=== PATIENT | male | born 1935 | race Caucasian/White ===

== ENCOUNTER 2017-04-12 15:29 | Emergency (ER) | payer OTHER, MEDICARE ==
[2017-04-12 15:41] VITALS: BMI 23.7
--- NOTE | 2017-04-12 15:49 | DR.AMS ---
HPI - Time Seen Time seen: 15:43 - PCP Primary Care Physician: RUSLAN DICKERSON - Complaint Cheif Complaint Doctors Comments: Patient droped spouse off the the [employer] [facility] , told her he would pick her up at 1pm. Spouse called patient and he did not know where she was, she told her he would pick her up at 1330 but at 1345 he had not arrived, she called and he did not know where she was. She eventually got someone to take her home. He was still unaware as to what was going on. Chief Complaint:: PTS C/O THAT AROUND 11 AM HER STARTED HAVING SOME CONFUSION. AND THAT HE DROPPED HER OFF AT [facility] AT 11 AND FORGOT TO PICK HER UP PT DENIES ANY PAIN OR TRAUMA AND HE ASKED HIS WHY SHE HAS A CANE". Self Treatment fo Chief Complaint: PT STATES " HE HAS NEVER BEEN DX WITH ALZHEIMERS OR DEMENTIA " - Source History Provided: Patient - Mode of Arrival Mode of Arrival: Ambulatory - Timing Onset of Chief Complaint: 04/12/17 PMH - PMH Past Medical History: No Past Medical History: Angina, GERD Past Medical History Comment: HX CANCER OF THE COLON, SACOMA Past Surgical History: No Surgical History: Ortho Surgery - Family History History of Family Medical Conditions: No Family Medical History: Hypertension - Social History Does patient currently use any type of tobacco product: No Have you used tobacco products in the last 12 months: No Type of Tobacco Use: None Does any household member use tobacco: No Alcohol Use: Rarely Do you use any recreational Drugs:: No Lives With: Family Lives Where: Home - infectious screening In the last 2 months have you had wt loss of >10#?: NO Have you had fever, night sweats or hemotysis?: No Have you traveled outside the country in the last 6 months?: No Isolation: Standard ROS - Review of Systems Eyes: No Symptoms Reported ENTM: No Symptoms Reported Respiratoy: No Symptoms Reported Cardiovascular: No Symptoms Reported Gastrointestinal/Abdominal: No Symptoms Reported Genitourinary: No Symptoms Reported Neurological: No Symptoms Reported Musculoskeletal: No Symptoms Reported Integumentary: No Symptoms Reported Hematologic/Lymphatic: No Symptoms Reported Endocrine: No Symptoms Reported Psychiatric: No Symptoms Reported All Other Systems: Reviewed and Negative PE - Vitals Vital Signs: Pulse Pulse Resp BP BP Pulse Ox 04/12/17 16:42 67 20 156/70 04/12/17 15:34 71 22 194/79 97 06/25/14 21:42 159/63 159/63 - General Limitations: No Limitations General Appearance: Alert, In No Apparent Distress - Head Head Exam: Normal Inspection, Atraumatic Head Exam Physical: negative: Laceration, Abrasion, Contusion, Hematoma, Raccoon Eyes, Bar's Sign, Tenderness of Temporal Artery, CSF Rhinorrhea, CSF Otorrhea, Other - Eyes Eye exam: Normal Appearance, PERRL, EOMI Pupils: Regular, Round: Bilateral - ENT ENT Exam: Normal Exam External Ear Exam: Normal External Inspection TM/Canal Exam: Bilateral Normal Nose Exam: Normal Nose Exam Mouth Exam: Normal Inspection Throat Exam: Normal Inspection - Neck Neck Exam: Normal Inspection, Full ROM - Chest Chest Inspection: Normal Inspection - Respiratory Respiratory Exam: Normal Lung Sounds Bilat Respiratory Exam: Bilateral Clear to Auscultation - Cardiovascular Cardiovascular Exam: Regular Rate, Normal Rhythm - Abdominal Exam Abdominal Exam: Normal Inspection, Normal Bowel Sounds Abdominal Tenderness: negative: RUQ, RLQ, LUQ, LLQ, Epigastrium, Suprapubic, Diffuse, Mild, Moderate, Severe, Other - Extremities Extremities Exam: Normal Inspection, Full ROM - Back Back Exam: Normal Inspection - Neurological Neurological Exam: Alert, Oriented X3, CN II-XII Intact, Normal Gait Cranial Nerve Exam: EOM Function (II, III, IV, ): Normal Cerebellar Function: Normal Gait Motor Strength - LUE: 3/5 Upper Motor Neuron Exam: Parrish Neglect: Normal Sensory Exam Upper Extremity: Light Touch: Normal DTR: achilles tendon (L): 2+ - Psychological Psychiatric Exam: Normal Affect, Normal Mood Expanded Psychiatric Exam: Poor Eye Contact - Skin Skin Exam: Warm, Dry, Intact ROR - Labs Reviewed Result Diagrams: 04/12/17 16:35 04/12/17 16:35 Laboratory: WBC 8.8 X10^3/uL (3.6-10.0) 04/12/17 16:35 RBC 4.74 X10^6/uL (4.7-6.0) 04/12/17 16:35 Hgb 14.3 g/dL (13.5-18.0) 04/12/17 16:35 Hct 42.4 % (42.0-54.0) 04/12/17 16:35 MCV 89.6 fL (80.0-100.0) 04/12/17 16:35 MCH 30.2 pg (27.0-34.0) 04/12/17 16:35 MCHC 33.7 g/dL (33.0-35.0) 04/12/17 16:35 RDW 13.5 % (11.6-16.5) 04/12/17 16:35 Plt Count 226 X10^3/uL (150.0-450.0) 04/12/17 16:35 MPV 8.1 fL (7.4-11.0) 04/12/17 16:35 Neut % 88.2 % (42.0-75.0) H 04/12/17 16:35 Lymph % 6.7 % (21.0-51.0) L 04/12/17 16:35 [place] % 4.7 % (0.0-13.0) 04/12/17 16:35 Eos % 0.0 % (0.9-2.9) L 04/12/17 16:35 Baso % 0.4 % (0.2-1.0) 04/12/17 16:35 Neut # 7.8 x10^3/uL (2.2-4.8) H 04/12/17 16:35 Lymph # 0.6 X10^3/uL (1.3-2.9) L 04/12/17 16:35 [place] # 0.4 x10^3/uL (0.3-0.8) 04/12/17 16:35 Eos # 0.0 x10^3/uL (0.0-0.2) 04/12/17 16:35 Baso # 0.0 X10^3/uL (0.0-0.1) 04/12/17 16:35 Absolute Nucleated RBC 0.0 /100WBC 04/12/17 16:35 Sodium 142 mmol/L (136-145) 04/12/17 16:35 Corrected Sodium TNP 04/12/17 16:35 Potassium 4.2 mmol/L (3.5-5.1) 04/12/17 16:35 Chloride 106 mmol/L (98-107) 04/12/17 16:35 Carbon Dioxide 29.7 mmol/L (21-32) 04/12/17 16:35 BUN 22 mg/dL (7-18) H 04/12/17 16:35 Creatinine 1.06 mg/dL (0.70-1.30) 04/12/17 16:35 Est GFR (MDRD) Af Amer > 60 (>60) 04/12/17 16:35 Est GFR (MDRD) Non-Af > 60 (>60) 04/12/17 16:35 Glucose 90 mg/dL (65-99) 04/12/17 16:35 Calcium 9.2 mg/dL (8.5-10.1) 04/12/17 16:35 Corrected Calcium TNP 04/12/17 16:35 Total Bilirubin 0.70 mg/dL (0.2-1.0) 04/12/17 16:35 AST 20 Units/L (15-37) 04/12/17 16:35 ALT 19 Units/L (12-78) 04/12/17 16:35 Alkaline Phosphatase 64 Units/L (46-116) 04/12/17 16:35 Total Protein 6.8 g/dL (6.4-8.2) 04/12/17 16:35 Albumin 3.6 g/dL (3.4-5.0) 04/12/17 16:35 Globulin 3.2 g/dL (2.5-4.5) 04/12/17 16:35 Albumin/Globulin Ratio 1.1 Ratio (1.1-2.1) 04/12/17 16:35 - XRAY XRAY Interpreted by: Radiologist (Age related cortical atrophy and chronic small vessel ischemic changes. No acute intraparenchymal hemorrhage or mass can be identified. No extra axial fluid collections are seen. No alteration in the attenuation of the brain parenchyma can be identified to suggest acute or subacute ischemic change. The ventricular system is symmetric and nondilated. Complete opacification of the left frontal sinus, left frontal ethmoidal recess, and anterior ethmoidal air cells. Remaining visualized paranasal sinuses and mastoid air cells are clear. The osseous structures are intact. 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
--- NOTE | 2017-04-12 16:40 | CT ---
HISTORY: Memory loss and confusion. Study: CT brain without contrast Comparison: None available. Technique: Multiple axial images of the brain were obtained from the skull base to the vertex without administra tion of IV contrast. Dose reduction techniques including Automated Exposure Control (AEC) and adjust ment of mA and kV were utilized. Findings: Age-related cortical atrophy and chronic small vessel ischemic changes. No acute intraparenchymal hem orrhage or mass can be identified. No extra-axial fluid collections are seen. No alteration in the attenuation of the brain parenchyma can be identified to suggest acute or subacute ischemic change. The ventricular system is symmetric and nondilated. Complete opacification of the left frontal sinus, left frontal ethmoidal recess, and anterior ethmoidal air cells. Remaining visualized paranasal sinu ses and mastoid air cells are clear. The osseous structures are intact. IMPRESSION: 1. No obvious acute intracranial pathology. If clinically concerned for acute ischemia/infarction, M [place] brain is more sensitive. 2. Sinus disease as above. Reported By:
[2017-04-12 16:43] LABS: BASOPHILS % (AUTO) 0.4 % (0.2-1.0); HEMATOCRIT 42.4 % (42.0-54.0); HEMOGLOBIN 14.3 g/dL (13.5-18.0); LYMPHOCYTES # (AUTO) 0.6 X10^3/uL (1.3-2.9); LYMPHOCYTES % (AUTO) 6.7 % (21.0-51.0); MEAN CORPUSCULAR HEMOGLOBIN 30.2 pg (27.0-34.0); MEAN CORPUSCULAR HGB CONC 33.7 g/dL (33.0-35.0); MEAN CORPUSCULAR VOLUME 89.6 fL (80.0-100.0); MEAN PLATELET VOLUME 8.1 fL (7.4-11.0); MONOCYTES # (AUTO) 0.4 x10^3/uL (0.3-0.8); MONOCYTES % (AUTO) 4.7 % (0.0-13.0); NEUTROPHILS # (AUTO) 7.8 x10^3/uL (2.2-4.8); NEUTROPHILS % (AUTO) 88.2 % (42.0-75.0); PLATELET COUNT 226 X10^3/uL (150.0-450.0); RED BLOOD COUNT 4.74 X10^6/uL (4.7-6.0); RED CELL DISTRIBUTION WIDTH 13.5 % (11.6-16.5); WHITE BLOOD COUNT 8.8 X10^3/uL (3.6-10.0)
[2017-04-12 16:57] LABS: ALANINE AMINOTRANSFERASE 19 Units/L (12-78); ALBUMIN 3.6 g/dL (3.4-5.0); ALKALINE PHOSPHATASE 64 Units/L (46-116); ASPARTATE AMINO TRANSFERASE 20 Units/L (15-37); BLOOD UREA NITROGEN 22 mg/dL (7-18); CALCIUM 9.2 mg/dL (8.5-10.1); CARBON DIOXIDE 29.7 mmol/L (21-32); CHLORIDE 106 mmol/L (98-107); CREATININE 1.06 mg/dL (0.70-1.30); SODIUM 142 mmol/L (136-145); TOTAL PROTEIN 6.8 g/dL (6.4-8.2); eGFR BLACK RACES > 60 (>60); eGFR NON BLACK RACES > 60 (>60)
[2017-04-12 18:35] VITALS: BP 158/68
--- NOTE | 2017-04-12 23:45 | RAD ---
Chest AP portable Indication: Altered mental status Comparison: 09/07/2009. Findings: There is no pneumothorax, effusion or consolidation. COPD changes noted. Cardiomegaly prese nt. Impression: Cardiomegaly and COPD change without new acute chest process or change from the prior. Reported By:
== END 2017-04-12 18:35 | disposition home or self-care (01) ==
LOC: ER 15:49
DX: J32.1 Chronic frontal sinusitis (principal)
CPT/HCPCS: 36415; 70450; 71010; 80053; 85025; 99283